=== PATIENT | female | born 1975 | race African-American/Black ===

== ENCOUNTER 2017-09-03 01:46 | Inpatient (IN) ==
[2017-09-03] MEDS ORDERED: MORPHINE 4 MG/1 ML VIAL IV STA (02:13)
[2017-09-03] MEDS ORDERED: ONDANSETRON 4 MG/2 ML VIAL IV STA ×2 (02:13→04:49)
[2017-09-03] MEDS ORDERED: KETOROLAC 30 MG/1 ML VIAL IV STA (02:15)
[2017-09-03 02:54] LABS: Basophils % 0.4 % (0.0-0.8); Eosinophils # 0.1 10*3/uL (0.0-0.87); Hematocrit 39.4 VOL% (35.7-47.0); Hemoglobin 13.7 GM/DL (12.0-16.0); Immature Granulocytes % 0.4 %; Immature Granulocytes Absolute 0.04 #; Lymphocytes # 3.3 10*3/uL (1.4-4.0); Lymphocytes % 29.8 % (21.3-54.2); Mean Corpuscular HGB Conc 34.8 GM/DL (32-36); Mean Corpuscular Hemoglobin 32 PG (27-34); Mean Corpuscular Volume 90.8 FL (87-102); Mean Platelet Volume 10.7 FL (9.6-12.0); Monocytes # 0.6 10*3/uL (0.11-0.8); Monocytes % 5.7 % (1.7-12.7); Neutrophils % 62.7 % (38.7-73.9); Platelet Count 263 T/CUMM (130-400); Red Blood Count 4.34 MC/CUMM (3.8-5.5); Red Cell Distribution Width 12.6 % (9.3-17.3); White Blood Count 11.2 T/CUMM (4-12)
[2017-09-03 03:04] LABS: Apearance,Urine CLEAR (Clear); Bilirubin,Urine Negative (Negative); Blood, Urine Negative (Negative); Glucose,Urine (UA) Negative (Negative); Ketones,Urine Negative (Negative); Nitrite,Urine Negative (Negative); Protein,Urine Negative; RBC,Urine <1 /HPF (0-4); Squamous Epithelial Cell,Urine Occasional /HPF (0-10); Urine Color Straw (Yellow); Urine Specific Gravity 1.013 (1.001-1.035); Urine Urobilinogen < 2.0 EU/DL (0.2-1.0); WBC,Urine <1 /HPF (0-6)
[2017-09-03 03:18] LABS: Alanine Aminotransferase 21 U/L (13-56); Albumin 3.7 G/DL (3.4-5.0); Alkaline Phosphatase 60 U/L (45-117); Aspartate Amino Transferase 14 U/L (0-37); Bilirubin,Total < 0.39 MG/DL (0.2-1.0); Blood Urea Nitrogen 12 MG/DL (7-18); Calcium 8.5 MG/DL (8.5-10.1); Glucose 101 MG/DL (74-106); Osmolality,Calculated 274.7 MOS/KG (273-304); Potassium 3.3 MMOL/L (3.5-5.1); Sodium 138 MMOL/L (136-145); Total Protein 7.5 G/DL (6.4-8.3)
[2017-09-03] MEDS ORDERED: MEPERIDINE 25 MG/1 ML VIAL IV STA (03:35)
[2017-09-03] MEDS ORDERED: MEPERIDINE 50 MG/1 ML VIAL IV STA (04:49)
[2017-09-03] MEDS: DEXTROSE 5% LACTATED RINGERS 1,000 ML IV SCH ×3 (05:29→21:05)
[2017-09-03] MEDS: POTASSIUM CHLORIDE RIDER 10 MEQ in PREMIX 1 EACH IV SCH ×6 (08:00→13:10)
[2017-09-03] MEDS: MEPERIDINE 25 MG/1 ML VIAL IV PRN ×3 (08:30→23:09)
[2017-09-03] MEDS: PANTOPRAZOLE 40 MG TABLET PO SCH (09:00)
[2017-09-03] MEDS: KETOROLAC 30 MG/1 ML VIAL IV PRN (13:10)
[2017-09-04] MEDS: DEXTROSE 5% LACTATED RINGERS 1,000 ML IV SCH ×3 (05:26→22:19)
[2017-09-04] MEDS ORDERED: cefOXitin 2,000 MG in SYRINGE 1 EACH IV ONE (06:00)
[2017-09-04] MEDS: KETOROLAC 30 MG/1 ML VIAL IV PRN (06:53)
[2017-09-04 07:59] LABS: Basophils % 0.3 % (0.0-0.8); Eosinophils # 0.2 10*3/uL (0.0-0.87); Eosinophils % 1.6 % (0.00-10.9); Hematocrit 37.7 VOL% (35.7-47.0); Hemoglobin 12.6 GM/DL (12.0-16.0); Immature Granulocytes % 0.3 %; Immature Granulocytes Absolute 0.03 #; Lymphocytes # 3.1 10*3/uL (1.4-4.0); Lymphocytes % 33.7 % (21.3-54.2); Mean Corpuscular HGB Conc 33.4 GM/DL (32-36); Mean Corpuscular Hemoglobin 31 PG (27-34); Mean Corpuscular Volume 92.2 FL (87-102); Mean Platelet Volume 11.1 FL (9.6-12.0); Monocytes # 0.5 10*3/uL (0.11-0.8); Monocytes % 5.8 % (1.7-12.7); Neutrophils # 5.3 10*3/uL (1.4-7.4); Neutrophils % 58.3 % (38.7-73.9); Platelet Count 248 T/CUMM (130-400); Red Blood Count 4.09 MC/CUMM (3.8-5.5); Red Cell Distribution Width 12.7 % (9.3-17.3); White Blood Count 9.2 T/CUMM (4-12)
[2017-09-04] MEDS: PANTOPRAZOLE 40 MG TABLET PO SCH (08:10)
[2017-09-04] MEDS: MEPERIDINE 25 MG/1 ML VIAL IV PRN ×3 (08:10→22:41)
[2017-09-04] MEDS ORDERED: LIDOCAINE 1%/EPI INJ 20 ML VIAL ONE (08:50)
[2017-09-04] MEDS ORDERED: TISSUE ADHESIVE 1 EACH APPLICATOR TOP ONE (08:50)
[2017-09-04] MEDS ORDERED: SCOPOLAMINE 1.5 MG PATCH TRANSDERM ONE ×2 (09:22→09:26)
[2017-09-04] MEDS ORDERED: SEVOFLURANE 1 UNIT/15 MINUTE INH ONE (10:58)
[2017-09-04] MEDS ORDERED: PROPOFOL 200 MG/20 ML VIAL IV ONE (10:58)
[2017-09-04] MEDS ORDERED: KETOROLAC 30 MG/1 ML VIAL ONE (10:59)
[2017-09-04] MEDS ORDERED: GLYCOPYRROLATE 0.4 MG/2 ML VIAL ONE (10:59)
[2017-09-04] MEDS ORDERED: ROCURONIUM 100 MG/10 ML VIAL IV ONE (10:59)
[2017-09-04] MEDS ORDERED: ACETAMINOPHEN 1,000 MG/100 ML VIAL IV ONE (10:59)
[2017-09-04] MEDS ORDERED: MIDAZOLAM 2 MG/2 ML VIAL ONE (10:59)
[2017-09-04] MEDS ORDERED: DEXAMETHASONE 10 MG/1 ML VIAL ONE (10:59)
[2017-09-04] MEDS ORDERED: fentaNYL 100 MCG/2 ML VIAL ONE (10:59)
[2017-09-04] MEDS ORDERED: ONDANSETRON 4 MG/2 ML VIAL ONE (10:59)
[2017-09-04] MEDS ORDERED: NEOSTIGMINE 10 MG/10 ML VIAL ONE (11:00)
[2017-09-04] MEDS: ONDANSETRON 4 MG/2 ML VIAL IV PRN (15:51)
[2017-09-05] MEDS: DEXTROSE 5% LACTATED RINGERS 1,000 ML IV SCH ×6 (01:03→21:05)
[2017-09-05 07:04] LABS: Calcium 8.4 MG/DL (8.5-10.1); Osmolality,Calculated 277.4 MOS/KG (273-304); Potassium 3.8 MMOL/L (3.5-5.1)
[2017-09-05] MEDS: MEPERIDINE 25 MG/1 ML VIAL IV PRN ×3 (07:54→22:40)
[2017-09-05] MEDS: ONDANSETRON 4 MG/2 ML VIAL IV PRN ×2 (07:59→12:23)
[2017-09-05] MEDS: PANTOPRAZOLE 40 MG TABLET PO SCH (08:00)
[2017-09-05 12:38] LABS: Alanine Aminotransferase 37 U/L (13-56); Albumin 2.9 G/DL (3.4-5.0); Alkaline Phosphatase 49 U/L (45-117); Aspartate Amino Transferase 24 U/L (0-37); Bilirubin,Direct < 0.100 MG/DL (0.0-0.20); Bilirubin,Indirect 0.3 MG/DL (0.0-1.0); Bilirubin,Total < 0.39 MG/DL (0.2-1.0); Total Protein 5.9 G/DL (6.4-8.3)
[2017-09-05 13:17] LABS: Basophils % 0.3 % (0.0-0.8); Eosinophils % 0.3 % (0.00-10.9); Hemoglobin 12.5 GM/DL (12.0-16.0); Immature Granulocytes % 1.1 %; Immature Granulocytes Absolute 0.14 #; Lymphocytes # 3.3 10*3/uL (1.4-4.0); Lymphocytes % 25.5 % (21.3-54.2); Mean Corpuscular HGB Conc 34.7 GM/DL (32-36); Mean Corpuscular Hemoglobin 31 PG (27-34); Mean Corpuscular Volume 89.3 FL (87-102); Mean Platelet Volume 11.3 FL (9.6-12.0); Monocytes # 0.7 10*3/uL (0.11-0.8); Monocytes % 5.5 % (1.7-12.7); Neutrophils # 8.8 10*3/uL (1.4-7.4); Neutrophils % 67.3 % (38.7-73.9); Platelet Count 236 T/CUMM (130-400); Red Blood Count 4.03 MC/CUMM (3.8-5.5); Red Cell Distribution Width 12.3 % (9.3-17.3)
[2017-09-06] MEDS: DEXTROSE 5% LACTATED RINGERS 1,000 ML IV SCH (04:04)
[2017-09-06 06:55] LABS: Basophils % 0.3 % (0.0-0.8); Eosinophils # 0.1 10*3/uL (0.0-0.87); Eosinophils % 1.1 % (0.00-10.9); Hematocrit 34.1 VOL% (35.7-47.0); Hemoglobin 11.8 GM/DL (12.0-16.0); Immature Granulocytes % 0.3 %; Immature Granulocytes Absolute 0.03 #; Lymphocytes # 3.4 10*3/uL (1.4-4.0); Lymphocytes % 30.2 % (21.3-54.2); Mean Corpuscular HGB Conc 34.6 GM/DL (32-36); Mean Corpuscular Hemoglobin 31 PG (27-34); Monocytes # 0.6 10*3/uL (0.11-0.8); Monocytes % 5.7 % (1.7-12.7); Neutrophils # 7.1 10*3/uL (1.4-7.4); Neutrophils % 62.4 % (38.7-73.9); Platelet Count 209 T/CUMM (130-400); Red Blood Count 3.79 MC/CUMM (3.8-5.5); Red Cell Distribution Width 12.3 % (9.3-17.3); White Blood Count 11.3 T/CUMM (4-12)
[2017-09-06] MEDS: MEPERIDINE 25 MG/1 ML VIAL IV PRN (09:25)
[2017-09-06] MEDS: PANTOPRAZOLE 40 MG TABLET PO SCH (09:26)
[2017-09-06 12:42] VITALS: BP 133/77
== END 2017-09-06 16:47 | disposition home or self-care (01) | DRG 419 ==
LOC: N.ED 01:46 → N.EDINP 04:50 → N.3E 06:16
PROVIDERS: ADMIT Surgery; ATTEND Surgery
PROC: LAPCHOL (2017-09-04 09:31)